=== PATIENT | male | born 1955 | race Caucasian/White ===

== ENCOUNTER 2024-12-20 08:57 | Inpatient (IN) ==
--- NOTE | 2024-11-17 12:42 | PAT Medication Instructions ---
Medication Instructions Date of Service November 17, 2024 Home Medications albuterol 90 mcg/actuation aerosol inhaler 90 mcg inhalation QID PRN apixaban 5 mg tablet (Eliquis) 5 mg PO BID atorvastatin 40 mg tablet (Lipitor) 40 mg PO QPM buprenorphine 15 mcg/hour weekly transdermal patch 1 patch transdermal Q7D empagliflozin 25 mg tablet (Jardiance) 12.5 mg PO QAM escitalopram oxalate 20 mg tablet (Lexapro) 20 mg PO QAM fenofibrate nanocrystallized 145 mg tablet 145 mg PO QAM fluticasone propionate 50 mcg/actuation nasal spray,suspension 1 spray intranasal HS PRN guaifenesin 600 mg tablet, extended release 12 hr (Mucinex) 600 mg PO Q12H PRN lisinopril 20 mg tablet 20 mg PO QAM magnesium oxide 420 mg tablet 420 mg PO QAM melatonin 3 mg tablet 3 mg PO HS metformin 1,000 mg tablet 1,000 mg PO BID methocarbamol 500 mg tablet 1,000 mg PO TID PRN methyl salicylate 10 % topical cream 1 applic topical DAILY PRN pantoprazole 40 mg tablet,delayed release (Protonix) 40 mg PO QAM pregabalin 75 mg capsule (Lyrica) 75 mg PO BID sitagliptin 100 mg tablet 100 mg PO QAM vitamin B12 1 mg-folic acid 0.8 mg tablet 1 tab PO DAILY STOP 3 days before surgery empagliflozin 25 mg tablet (Jardiance) 12.5 mg PO QAM Continue as directed buprenorphine 15 mcg/hour weekly transdermal patch 1 patch transdermal Q7D (do NOT place on surgical area) ASK your prescriber and surgeon apixaban 5 mg tablet (Eliquis) 5 mg PO BID STOP taking 48 hours before surgery fenofibrate nanocrystallized 145 mg tablet 145 mg PO QAM STOP taking 24 hours before surgery methyl salicylate 10 % topical cream 1 applic topical DAILY PRN DO NOT take the morning of surgery guaifenesin 600 mg tablet, extended release 12 hr (Mucinex) 600 mg PO Q12H PRN lisinopril 20 mg tablet 20 mg PO QAM magnesium oxide 420 mg tablet 420 mg PO QAM metformin 1,000 mg tablet 1,000 mg PO BID sitagliptin 100 mg tablet 100 mg PO QAM vitamin B12 1 mg-folic acid 0.8 mg tablet 1 tab PO DAILY Take morning of surgery With a small sip of water, OTHERWISE NOTHING TO EAT OR DRINK AFTER MIDNIGHT: albuterol 90 mcg/actuation aerosol inhaler 90 mcg inhalation QID PRN(use if needed; please bring with you to hospital day of surgery if possible) escitalopram oxalate 20 mg tablet (Lexapro) 20 mg PO QAM methocarbamol 500 mg tablet 1,000 mg PO TID PRN(if needed) pantoprazole 40 mg tablet,delayed release (Protonix) 40 mg PO QAM pregabalin 75 mg capsule (Lyrica) 75 mg PO BID Take evening before surgery albuterol 90 mcg/actuation aerosol inhaler 90 mcg inhalation QID PRN(if needed) atorvastatin 40 mg tablet (Lipitor) 40 mg PO QPM fluticasone propionate 50 mcg/actuation nasal spray,suspension 1 spray intranasal HS PRN(if needed) guaifenesin 600 mg tablet, extended release 12 hr (Mucinex) 600 mg PO Q12H PRN (if needed) melatonin 3 mg tablet 3 mg PO HS metformin 1,000 mg tablet 1,000 mg PO BID methocarbamol 500 mg tablet 1,000 mg PO TID PRN(if needed) pregabalin 75 mg capsule (Lyrica) 75 mg PO BID Other Notes If you have any questions please call us at [phone] or [phone] or [phone] or [phone]
--- NOTE | 2024-11-24 13:10 | Anesthesiology Consultation ---
Date of Service November 24, 2024 Assessment & Plan (1) Encounter for pre-operative examination: Plan - awaiting 11/28/24 PCP Kole [facility] clearance. - check BSG am DOS. - cardiology clearance 11/01/24: "...preoperative cardiac clearance. ..intermediate cardiovascular risk (orthopedic)...mild nonobstructive CAD by cardiac catheterization in 2005...based on history, physical examination and the above information, do not recommend further cardiovascular testing or procedures prior to proceeding with planned back surgery...should be considered a low cardiovascular risk candidate..." - neurology clearance 09/28/24: "...low to moderate risk...cleared for scheduled surgery...off medication as minimum as possible...resume the medication as soon as possible...antiphospholipid antibody syndrome for which he is taking anticoagulation apixaban to prevent stroke, DVT, PE. 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 Medication instructions provided according to the PAT guidelines. History Surgery Operation Date: 12/20/24 11:05 Proposed Procedures p L3-L5 Decompression with Coflex - Heron Redd, Height/Weight Height: 6 ft 2 in Weight: 106 kg Allergies Allergy/AdvReac Type Severity Reaction Status Date / Time No Known Allergies Allergy Verified 11/17/24 08:26 Medications Home Medications Medication Instructions Recorded Confirmed Last Taken albuterol 90 mcg/actuation aerosol 90 mcg inhalation QID PRN 11/17/24 11/17/24 Unknown inhaler Shortness Of Breath Or Wheezing apixaban 5 mg tablet (Eliquis) 5 mg PO BID 11/17/24 11/17/24 Unknown atorvastatin 40 mg tablet (Lipitor) 40 mg PO QPM 11/17/24 11/17/24 Unknown buprenorphine 15 mcg/hour weekly 1 patch transdermal Q7D 11/17/24 11/17/24 Unknown transdermal patch empagliflozin 25 mg tablet 12.5 mg PO QAM 11/17/24 11/17/24 Unknown (Jardiance) escitalopram oxalate 20 mg tablet 20 mg PO QAM 11/17/24 11/17/24 Unknown (Lexapro) fenofibrate nanocrystallized 145 145 mg PO QAM 11/17/24 11/17/24 Unknown mg tablet fluticasone propionate 50 1 spray intranasal HS PRN Nasal 11/17/24 11/17/24 Unknown mcg/actuation nasal Congestion spray,suspension guaifenesin 600 mg tablet, 600 mg PO Q12H PRN Congestion 11/17/24 11/17/24 Unknown extended release 12 hr (Mucinex) lisinopril 20 mg tablet 20 mg PO QAM 11/17/24 11/17/24 Unknown magnesium oxide 420 mg tablet 420 mg PO QAM 11/17/24 11/17/24 Unknown melatonin 3 mg tablet 3 mg PO HS 11/17/24 11/17/24 Unknown metformin 1,000 mg tablet 1,000 mg PO BID 11/17/24 11/17/24 Unknown methocarbamol 500 mg tablet 1,000 mg PO TID PRN Muscle Spams 11/17/24 11/17/24 Unknown methyl salicylate 10 % topical 1 applic topical DAILY PRN Muscle 11/17/24 11/17/24 Unknown cream Pain pantoprazole 40 mg tablet,delayed 40 mg PO QAM 11/17/24 11/17/24 Unknown release (Protonix) pregabalin 75 mg capsule (Lyrica) 75 mg PO BID 11/17/24 11/17/24 Unknown sitagliptin 100 mg tablet 100 mg PO QAM 11/17/24 11/17/24 Unknown vitamin B12 1 mg-folic acid 0.8 mg 1 tab PO DAILY 11/17/24 11/17/24 Unknown tablet atorvastatin 40 mg tablet (Lipitor) 40 mg PO HS 11/24/24 11/24/24 Unknown Additional Notes: Patient was instructed and it was written on provided medication instructions to continue Lipitor after reconciliation of home medication list patient brought to PAT visit. Past Medical History Medical History (Updated 11/24/24 @ 15:37 by Shelley Eagle PA-C) Antiphospholipid antibody syndrome CAD (coronary artery disease) no stents - JORGE LUIS Nguyen Cerebral venous thrombosis of cortical vein (~06/2022) Diabetes mellitus, type 2 NIDDM Essential tremor arms, rarely head involvement GERD (gastroesophageal reflux disease) controlled, stable per pt History of CVA (cerebrovascular accident) (~2022) 2022 - [facility] - "I had three blood clots" - no residuals - Eliquis History of kidney stones multiple History of seizure multiple after CVA-last seizure 2022-follows with [facility] Neurology Hyperlipidemia Hypertension controlled, stable per pt Lumbar back pain Neuropathy Sarcoidosis per cardiology records Thrombosis, superior sagittal sinus (~06/2022) Patient denies h/o heart attack, heart failure, or blood transfusions. Exercise / Class Metabolic Activity III < 4 Walking/Shop/Light housework (ambulates with rolling walker, shortness of breath with usual activities ongoing for over a year-denies change or wors ening; denies chest discomfort) Past Surgical History Surgical History History of appendectomy History of bilateral cataract extraction History of cardiac catheterization JORGE LUIS - Dr Nguyen - no stents History of carpal tunnel release of both wrists History of cervical spinal surgery no hardware - Full ROM History of cystoscopy with stent History of elbow surgery Left History of lithotripsy Past Anesthesia History No Hx of Anesthesia Complications and Other (brother slow to wake) History of PONV History of PONV and Hx of Motion Sickness Social History Smoking Status: Never smoker Do You Dip or Chew Tobacco: No Hx Alcohol Use: Yes alcohol intake frequency: holidays/special occasions only Hx Substance Use: No substance use type: does not use Review of Systems Snoring, denies witnessed apneas. Patient denies chest pain, fever, chills, cough, wheezing, or palpitations. Physical Exam Vital Signs Vitals BP 103/65 P 65 TEMP 98.5 SP02 96% on RA RESP 18 Physical Patient resting comfortably in chair in no acute distress, alert and oriented, responding appropriately throughout visit Full cervical extension range of motion without pain TMD 3.5 finger breadths Mallampati Score 2 Dentition: intact, denies chipped or loose teeth, caps/crowns, implants or bridges Lungs: normal respiratory effort. Good air movement, clear throughout to auscultation, no adventitious breath sounds Cardiac: regular rate and rhythm, no murmurs noted Carotid arteries: negative bruit bilat Lab Results Anesthesia Preop Results Results Anesthesia Widget: WBC 3.96 K/ul (4.8-10.8) L 11/24/24 Hgb 14.5 g/dl (14.0-18.0) 11/24/24 Hct 44.2 % (42.0-52.0) 11/24/24 Plt 184 K/uL (130-400) 11/24/24 Na 141 mmol/L (136-145) 11/24/24 K 4.5 mmol/L (3.5-5.1) 11/24/24 Cl 106 mmol/L (98-107) 11/24/24 CO2 29 mmol/L (21-32) 11/24/24 BUN 19 mg/dl (6-23) 11/24/24 Creat 1.69 mg/dl (0.6-1.4) H 11/24/24 Glucose Level 121 mg/dl (70-99(Fasting)) H 11/24/24 PT 12.3 Seconds (9.0-12.0) H 11/24/24 PTT 29 Seconds (21-31) 11/24/24 INR 1.1 (0.9-1.1) 11/24/24 HA1c 6.9 % (4.5-5.6) H 11/24/24 Urine Color Yellow 11/24/24 Urine Appearance Clear (Clear) 11/24/24 Urine pH 5.5 (4.5-7.5) 11/24/24 Urine Specific [place] 1.034 (1.000-1.030) H 11/24/24 Urine Protein Negative (Negative) 11/24/24 Urine Glucose (UA) 3+ (Negative) H 11/24/24 Urine Ketones Negative (Negative) 11/24/24 Urine Blood Negative (Negative) 11/24/24 Urine Nitrite Negative (Negative) 11/24/24 Urine Bilirubin Negative (Negative) 11/24/24 Urine Urobilinogen Negative (Negative) 11/24/24 Urine Leukocyte Esterase Negative (Negative) 11/24/24 Blood Type O Positive 11/24/24 Antibody Screen NEGATIVE 11/24/24 Testing Electrocardiogram Date: 11/01/24 Sinus rhythm, rate 64 bpm Left axis Chest X-Ray Date: 11/24/24 No acute findings. Echocardiogram Date: 10/18/24 LVEF 60-65% No LV regional wall motion abnormalities No significant valvular pathology Stress Test Date: 06/23/19 Nondiagnostic as the patient underwent Lexiscan stress No electrocardiographic criteria for myocardial ischemia Normal myocardial perfusion imaging Absent myocardial ischemia or infarction EF 62% Normal LV wall motion
[2024-12-20] MEDS: GABAPENTIN 300 MG CAP PO SCH (09:39)
[2024-12-20] MEDS: ACETAMINOPHEN 500 MG TAB PO SCH (09:39)
[2024-12-20] MEDS: CeleBREX 200 MG CAP PO SCH (09:39)
[2024-12-20] MEDS: LR 60ML/HR IV SCH (09:39)
[2024-12-20] MEDS: LR 15ML/HR IV SCH (09:39)
[2024-12-20] MEDS ORDERED: MIDAZOLAM HCL 1 MG/ML 2ML VIAL ONE (10:07)
[2024-12-20] MEDS ORDERED: DEXAMETHASONE SOD INJ 4 MG/ML VIAL ONE (10:10)
[2024-12-20] MEDS ORDERED: fentaNYL citrate PF 100 MCG/2 ML VIAL ONE (10:10)
[2024-12-20] MEDS ORDERED: PROMETHAZINE HCL 6.25 MG in SODIUM CHLORIDE 0.9% 50 ML IV PRN (10:10)
[2024-12-20] MEDS ORDERED: ATROPINE SULFATE 0.1 MG/ML 10ML SYR IV PRN (10:10)
[2024-12-20] MEDS ORDERED: ePHEDrine sulfate 50 MG/ML AMP IV PRN (10:10)
[2024-12-20] MEDS ORDERED: PROPOFOL IV EMULSION 10 MG/ML 20 ML VIAL IV ONE (10:10)
[2024-12-20] MEDS ORDERED: LIDOCAINE 2% 2 ML VIAL/AMP(20MG/ML) INFIL ONE (10:10)
[2024-12-20] MEDS ORDERED: ROCURONIUM BROMIDE 10 MG/ML 5 ML VIAL IV ONE ×2 (10:10→11:12)
[2024-12-20] MEDS ORDERED: ONDANSETRON INJ 2 MG/ML 2 ML VIAL ONE (10:10)
--- NOTE | 2024-12-20 10:31 | History & Physical Bridge Note ---
Date of Service December 20, 2024 History & Physical Bridge Note I have examined the patient, reviewed the History & Physical and in the interval since the performance of the History & Physical I have noted the following changes of clinical significance: no changes noted
--- NOTE | 2024-12-20 10:31 | History & Physical Report ---
Date of Service December 20, 2024 Assessment & Plan (1) Neurogenic claudication due to lumbar spinal stenosis: Plan: L3-L5 decompression with Coflex History of Present Illness Chief Complaint: Back and bilateral leg pain Primary Care Provider: [facility] This is a 69-year-old male who presents with chronic persistent back and leg pain after failing course of nonoperative care is here for surgical invention. Allergies Allergy/AdvReac Type Severity Reaction Status Date / Time No Known Allergies Allergy Verified 12/20/24 09:19 Home Medications Medication Instructions Recorded Confirmed Type albuterol 90 mcg/actuation aerosol 90 mcg inhalation QID PRN 11/17/24 12/20/24 History inhaler Shortness Of Breath Or Wheezing apixaban 5 mg tablet (Eliquis) 5 mg PO BID 11/17/24 12/20/24 History atorvastatin 40 mg tablet (Lipitor) 40 mg PO QPM 11/17/24 12/20/24 History buprenorphine 15 mcg/hour weekly 1 patch transdermal Q7D 11/17/24 12/20/24 History transdermal patch (Butrans) empagliflozin 25 mg tablet 12.5 mg PO QAM 11/17/24 12/20/24 History (Jardiance) escitalopram oxalate 20 mg tablet 20 mg PO QAM 11/17/24 12/20/24 History (Lexapro) fenofibrate nanocrystallized 145 145 mg PO QAM 11/17/24 12/20/24 History mg tablet (Tricor) fluticasone propionate 50 1 spray intranasal HS PRN Nasal 11/17/24 12/20/24 His tory mcg/actuation nasal Congestion spray,suspension guaifenesin 600 mg tablet, 600 mg PO Q12H PRN Congestion 11/17/24 12/20/24 History extended release 12 hr (Mucinex) lisinopril 20 mg tablet 20 mg PO QAM 11/17/24 12/20/24 History magnesium oxide 420 mg tablet 420 mg PO QAM 11/17/24 12/20/24 History melatonin 3 mg tablet 3 mg PO HS 11/17/24 12/20/24 History metformin 1,000 mg tablet 1,000 mg PO BID 11/17/24 12/20/24 History methocarbamol 500 mg tablet 1,000 mg PO TID PRN Muscle Spams 11/17/24 12/20/24 History methyl salicylate 10 % topical 1 applic topical DAILY PRN Muscle 11/17/24 12/20/24 History cream (Methylten) Pain pantoprazole 40 mg tablet,delayed 40 mg PO QAM 11/17/24 12/20/24 History release (Protonix) pregabalin 75 mg capsule (Lyrica) 75 mg PO BID 11/17/24 12/20/24 History sitagliptin 100 mg tablet (Zituvio) 100 mg PO QAM 11/17/24 12/20/24 History vitamin B12 1 mg-folic acid 0.8 mg 1 tab PO DAILY 11/17/24 12/20/24 History tablet Past Med/Surg History Problem List (Updated 12/20/24 @ 10:31 by Heron Redd DO) Neurogenic claudication due to lumbar spinal stenosis Encounter for pre-operative examination Medical History (Updated 12/20/24 @ 10:31 by Heron Redd DO) 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, superior sagittal sinus (~06/2022) Antiphospholipid antibody syndrome Sarcoidosis per cardiology records Essential tremor arms, rarely head involvement Neuropathy Lumbar back pain CAD (coronary artery disease) no stents - JORGE LUIS Nguyen Hyperlipidemia History of kidney stones multiple GERD (gastroesophageal reflux disease) controlled, stable per pt History of seizure multiple after CVA-last seizure 2022-follows with [facility] Neurology Hypertension controlled, stable per pt Diabetes mellitus, type 2 NIDDM History of CVA (cerebrovascular accident) (~2022) 2022 - [place] - [facility] - "I had three blood clots" - no residuals - Eliquis Surgical History History of cervical spinal surgery no hardware - Full ROM History of carpal tunnel release of both wrists History of elbow surgery Left History of cystoscopy with stent History of lithotripsy History of appendectomy History of bilateral cataract extraction History of cardiac catheterization JORGE LUIS Nguyen - no stents Social History Smoking Status: Never smoker Second Hand Exposure: No; Do You Dip or Chew Tobacco: No; Tobacco Cessation Education Requested by Patient: No Hx Alcohol Use: Yes Hx Substance Use: No Preferred Language: Jordanian Communication Ability: Effective Stack Matcher Required: No Beliefs That Will Affect Care: None Current Living Situation: Significant Other Other Information That Helps Us Care for You: No Feels Safe at Home: Yes Safety Concerns: Feels Safe At This Time Assistive Devices: Glasses and Walker Physical Exam Physical Exam: Patient is alert and oriented Heart regular rhythm lungs clear Results & Data Results & Data Vital Signs (Past 12 Hours) Vital Signs Temp Pulse Resp BP Pulse Ox O2 Del Method 12/20/24 09:25 36.7 C 68 18 138/84 95 Room Air
[2024-12-20] MEDS: ceFAZolin 2000MG 2,000 MG/15 ML SYR IV SCH ×2 (11:10→18:11)
[2024-12-20] MEDS: BUPIVACAINE/EPINEPHRINE 0.25% 1:200,000 30 ML VIAL ONE (11:20)
[2024-12-20] MEDS: ceFAZolin 330 MG/ML 1 GM VIAL ONE (11:59)
[2024-12-20] MEDS: FLOSEAL HEMOSTATIC MATRIX 10ML TOP ONE (11:59)
[2024-12-20] MEDS ORDERED: SUGAMMADEX SODIUM 200 MG/2 ML VIAL IV ONE (12:02)
[2024-12-20] MEDS ORDERED: ePHEDrine sulfate 50 MG/5 ML SYR ONE (12:02)
--- NOTE | 2024-12-20 12:14 | Operative Report ---
Post Operative Report Pre & Post Diagnosis Operation Date: 12/20/24 10:35 Pre-Op Diagnosis: Spinal Stenosis Lumbar Region with Neurogenic Claudication Post-Op Diagnosis: Spinal Stenosis Lumbar Region with Neurogenic Claudication I identified the patient and participated in the time-out.: Yes Procedure Operation Date: 12/20/24 10:35 Actual Procedures #1 lumbar decompression with bilateral medial facetectomies L3-L4 L4-5 and #2 placement of Coflex interlaminar spacers 16mm at L3-L4 and 14 mm at L4-L5. #3 placement of versa wrap of the exposed dura. Surgeon Heron Redd, Scalloper Rosenda Frey Estimated Blood Loss 250 Findings Consistent with Post-Op Diagnosis Specimens None Indications This is a 69-year-old male who presents publish diagnosis after failing course of nonoperative care is here for surgical invention. Description of Procedure Patient was met with identified informed consent obtained. Patient was then taken to the operative suite underwent intubation placed in a prone position on the Harry table top the Robinson frame. All bony prominences well-padded eyes inspected to ensure no external pressure placed upon them. This point the lumbar spine was prepped and draped normal sterile fashion. Sharp dissection with the assistance of Bovie cautery performed down to and exposing the lamina and interlaminar spaces at L3-L4 L4-5. Began at L4-5 reporting a performed a midline decompression with bilateral medial facetectomies addressing severe subarticular stenosis and ligamentum hypertrophy. After decompression versa wrap was placed over the exposed dura and a 14 mm Coflex was tamped into position and crimped into place. I then proceeded L3-L4 and again midline decompression performed including bilateral medial facetectomies to address severe facet and hypertrophy and overgrowth of ligamentum flavum. After decompression first wrap was placed over the exposed dura and a 16mm Coflex was tamped into position and clamped into place. Incision was then copiously irrigated and a 15 round NIK drain inserted. It was then closed with 1 Vicryl the fascia 2-0 Vicryl subcutaneously and 4 Monocryl for for final skin closure. Steri-Strips sterile dressing placed. Patient waken taken to PACU stable condition. Please note Rosenda Frey was present of the entire procedure and on the patient positioning complex portion of the surgery and final skin closure. Im ordering 10 grams of Collagen Powder ([facility] A6010 Primary Dressing) and 10 bordered super absorbent ([facility] A6196 Secondary Dressing) to treat an incision wound that was caused by a spine procedure. The incision is approximately 2 cm(W) x 2 cm(L) down to the spinal column and epidural space 2 cm (D) in size and is a full thickness wound showing no signs of infection. Collagen comes in 1 gram packets so 10 packets were ordered. Given the size of the wound, with moderate exudate I chose to order a 10 day supply. The patient will be provided instructions for proper application of the collagen wound kit. The patient will be asked to apply the collagen powder daily and then cover it with sterile dressings dispensed. Collagen was selected as I expect the collagen to attract monocytes and fibroblasts, act as a sacrificial substrate for MMPs, and ultimately proved a matrix for tissue and vessel growth. The collagen will act as a primary dressing in this scenario. It is medically necessary for proper healing of these wounds to improve bioavailability and contact with each wound surface, this is also to help prevent infection of wounds and promote healing ultimately leading to a better healing outcome and limit the risk of infection. I attest to the content of the Intraoperative Record and any orders documented therein. Any exceptions are noted below.
[2024-12-20] MEDS: HYDROmorphone INJ 2 MG/ML SYR/VIAL IV PRN (12:44)
--- NOTE | 2024-12-20 13:05 | Fluoroscopy Report ---
FL lumbar spine 2-3V CLINICAL HISTORY: L3-L5 DECOMPRESSION AND FUSION COMPARISON STUDY: None FLUOROSCOPY TIME: 11 seconds FLUOROSCOPY IMAGES: 3 EXPOSURE DOSE: 10 mGy FINDINGS: Fluoroscopy was provided for placement of posterior intraspinous devices at the lower lumba r spine. IMPRESSION: Intraoperative fluoroscopy. ACT 112: Negative or not required by law. Electronically signed by: Martin Leal M.D. 12/20/2024 1:04 PM
--- NOTE | 2024-12-20 13:42 | Anesthesiology Progress Note ---
Date of Service December 20, 2024 Anesthesia Post Procedure Vital Signs Vital Signs: Temp Pulse Pulse Resp BP Pulse Ox O2 Del Method 12/20/24 13:30 78 15 127/77 92 Nasal Cannula 12/20/24 13:20 36.6 C 76 16 139/70 93 Room Air 12/20/24 13:10 77 15 121/72 94 Oxymask 12/20/24 13:00 73 18 136/71 96 Oxymask 12/20/24 12:50 70 16 140/74 96 Oxymask 12/20/24 12:40 74 15 138/76 97 Oxymask 12/20/24 12:30 74 15 121/85 97 Oxymask 12/20/24 12:21 36.7 C 81 10 L 129/67 95 Oxymask 12/20/24 09:25 36.7 C 68 18 138/84 95 Room Air O2 Flow Rate 12/20/24 13:30 2 12/20/24 13:20 12/20/24 13:10 5 12/20/24 13:00 5 12/20/24 12:50 5 12/20/24 12:40 5 12/20/24 12:30 10 12/20/24 12:21 10 12/20/24 09:25 Pain Intensity Back: Pain Intensity: 6 Transfer of Care Handoff Completed per policy Notes Mental Status: alert / awake / arousable and participated in evaluation Nausea / Vomiting: adequately controlled Pain: adequately controlled Airway Patency, RR, SpO2: stable & adequate BP & HR: stable & adequate Hydration State: stable & adequate Anesthetic Complications: no major complications apparent and Pt Satisfied with anesthetic care
[2024-12-20] MEDS ORDERED: guaiFENesin 600 MG TABCR PO PRN (13:45)
[2024-12-20] MEDS ORDERED: HYDROmorphone INJ 1 MG/ML SYRINGE IV PRN (13:45)
[2024-12-20] MEDS ORDERED: FAMOTIDINE 20 MG TAB PO PRN (13:45)
[2024-12-20] MEDS ORDERED: LORazepam 0.5 MG TAB PO PRN (13:45)
[2024-12-20] MEDS ORDERED: ONDANSETRON 4 MG OD TAB PO PRN (13:45)
[2024-12-20] MEDS ORDERED: bisacodyL 10 MG SUPP PR PRN (13:45)
[2024-12-20] MEDS ORDERED: DO NOT ADMINISTER FLU VACCINE PRN (13:45)
[2024-12-20] MEDS ORDERED: DO NOT ADMINISTER PNEUMOCOCCAL VACCINE PRN (13:45)
[2024-12-20] MEDS ORDERED: PHARMACY GLYCEMIC MGMT CONSULT PRN (13:45)
[2024-12-20] MEDS ORDERED: MAGNESIUM HYDROXIDE SUSP 30 ML UDC PO PRN (13:45)
[2024-12-20] MEDS ORDERED: BUPRENORPHINE TD SCH (13:45)
[2024-12-20] MEDS ORDERED: ALUMINUM/MAGNESIUM SUSP 30 ML UDC PO PRN (13:45)
[2024-12-20] MEDS ORDERED: diphenhydrAMINE Capsule 25 MG CAP PO PRN (13:45)
[2024-12-20] MEDS ORDERED: ACETAMINOPHEN 1,000 MG/100 ML VIAL IV PRN (13:45)
[2024-12-20] MEDS ORDERED: NALOXONE HCL 0.4 MG/1 ML VIAL/CARP IV PRN (13:45)
[2024-12-20] MEDS ORDERED: FLUTICASONE PROPIONATE NA SPR 16 GM BTL PRN (13:45)
[2024-12-20] MEDS ORDERED: PROMETHAZINE 12.5 MG/50.5 ML BAG IV PRN (13:45)
[2024-12-20] MEDS ORDERED: traMADol HCL 50 MG TABLET PO PRN (13:45)
[2024-12-20] MEDS ORDERED: ONDANSETRON INJ 2 MG/ML 2 ML VIAL IV PRN (13:45)
[2024-12-20] MEDS ORDERED: METOCLOPRAMIDE HCL INJ 5 MG/ML 2 ML VIAL IV PRN (13:45)
[2024-12-20] MEDS ORDERED: HYDROmorphone INJ 0.5 MG/0.5 ML SYR IV PRN (13:45)
[2024-12-20] MEDS ORDERED: hydrOXYzine HCl 25 MG TAB PO PRN (13:45)
[2024-12-20] MEDS ORDERED: LORazepam 2 MG/1 ML VIAL IV PRN (13:45)
[2024-12-20] MEDS ORDERED: SOD PHOSPHATE/SOD BIPHOSPHATE ENEMA 132 ML BTL PR PRN (13:45)
[2024-12-20] MEDS ORDERED: ALBUTEROL HFA 8 GM INHALER INH PRN (13:58)
--- NOTE | 2024-12-20 14:11 | Consultation ---
Date of Consultation December 20, 2024 Assessment & Plan (1) Neurogenic claudication due to lumbar spinal stenosis: * Admit to Med Surg * POD#0 s/p lumbar decompression with interlaminar spacers with Dr. Redd. * EBL: 250 ml; Pre-op Hgb 14.5, Hct 44.2- Monitor NIK drain output ~50 ml output post-op * Monitor H&H with AM labs and as needed * CBC with AM labs * Per ortho for pain control- Acetaminophen for mild pain, Oxycodone moderate pain, Dilaudid for moderate or severe pain * Wound care per Ortho * Holding anticoagulation- Consider resuming Eliquis per home regimen * Encourage incentive spirometry while awake; wean oxygen as tolerated for goal O2 sat >92% * PT/OT when appropriate (2) Hypertension: * BP stable in the immediate post-operative phase at 130's/mid 70's * Hold home lisinopril for now * Consider resuming BP meds tomorrow (3) Diabetes mellitus, type 2: * Noninsulin-dependent diabetes managed with metformin, jardiance, and sitagliptin * AccuCheck ACHS * Sliding scale insulin ordered and will adjust accordingly * Pre-op A1C 6.9 (4) CAD (coronary artery disease): * CAD s/p CVA in 2021 with Eliquis treatment at home * Holding Eliquis for now * Follows [facility] Cardiology Dr. Hernandez (5) Hyperlipidemia: * Continue statin per home regimen Plan DVT Ppx: Code status: PCP: Dispo: Patient seen in collaboration with Dr. Almanza. Please see addendum.I spent a total of 35 minutes coordinating, documenting and providing care for this patient excluding time spent in the performance of separately billed services or time spent by another provider/QHP. Supervising Physician Co-Signing Physician Notes Patient seen and examined at bedside. Doing well post op, tired but comfortable. Patient is POD 0 of lumbar decompression for spinal stenosis. On exam, very comfortable, RRR, titrated off of oxygen but cannula still on. Will need the following: IS, pain control per ortho, NIK drain per ortho, daily Hgb/creatinine/leukocytosis monitoring. I have seen and discussed the case with the collaborating advanced practitioner. I agree with the above H&P. I have reviewed and confirmed the patients medical history, the findings on physical examination, and the patients diagnosis and treatment plan with Nellie GUDINO and agree with the information documented. I spent a total of 20 minutes coordinating, documenting, and providing care for this patient excluding time spent in the performance of separately billed services. All of the aforementioned completed outside of collaborating with the assigned advanced practitioner for a full treatment plan. I have reviewed the advanced practitioner's documentation, and I agree with, and take responsibility for the plan of care History of Present Illness Attending Physician: Heron Redd, DO History of Present Illness Mr. 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 Redd. The patient has tried outpatient conservative management with physical therapy, pain management injections, and pain medicines at home. He has history of cervical fusion surgery many years ago, date unknown, from spinal stenosis. He has multiple chronic health needs including those listed above. 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 His diabetes is controlled with oral agents, most recent A1C is 6.9. Blood pressure is relatively stable and is managed with lisinopril only. Mr. Romero receives primary care via the [facility]. History obtained from the patient and his family who was at the bedside to assist with past medical history, medication reconciling, and history of present illness. Allergies Allergy/AdvReac Type Severity Reaction Status Date / Time No Known Allergies Allergy Verified 12/20/24 09:19 Home Medications Medication Instructions Recorded Confirmed Type albuterol 90 mcg/actuation aerosol 90 mcg inhalation QID PRN 11/17/24 12/20/24 History inhaler Shortness Of Breath Or Wheezing apixaban 5 mg tablet (Eliquis) 5 mg PO BID 11/17/24 12/20/24 History atorvastatin 40 mg tablet (Lipitor) 40 mg PO QPM 11/17/24 12/20/24 History buprenorphine 15 mcg/hour weekly 1 patch transdermal Q7D 11/17/24 12/20/24 History transdermal patch (Butrans) empagliflozin 25 mg tablet 12.5 mg PO QAM 11/17/24 12/20/24 History (Jardiance) escitalopram oxalate 20 mg tablet 20 mg PO QAM 11/17/24 12/20/24 History (Lexapro) fenofibrate nanocrystallized 145 145 mg PO QAM 11/17/24 12/20/24 History mg tablet (Tricor) fluticasone propionate 50 1 spray intranasal HS PRN Nasal 11/17/24 12/20/24 History mcg/actuation nasal Congestion spray,suspension guaifenesin 600 mg tablet, 600 mg PO Q12H PRN Congestion 11/17/24 12/20/24 History extended release 12 hr (Mucinex) lisinopril 20 mg tablet 20 mg PO QAM 11/17/24 12/20/24 History magnesium oxide 420 mg tablet 420 mg PO QAM 11/17/24 12/20/24 History melatonin 3 mg tablet 3 mg PO HS 11/17/24 12/20/24 History metformin 1,000 mg tablet 1,000 mg PO BID 11/17/24 12/20/24 History methocarbamol 500 mg tablet 1,000 mg PO TID PRN Muscle Spams 11/17/24 12/20/24 History methyl salicylate 10 % topical 1 applic topical DAILY PRN Muscle 11/17/24 12/20/24 History cream (Methylten) Pain pantoprazole 40 mg tablet,delayed 40 mg PO QAM 11/17/24 12/20/24 History release (Protonix) pregabalin 75 mg capsule (Lyrica) 75 mg PO BID 11/17/24 12/20/24 History sitagliptin 100 mg tablet (Zituvio) 100 mg PO QAM 11/17/24 12/20/24 History vitamin B12 1 mg-folic acid 0.8 mg 1 tab PO DAILY 11/17/24 12/20/24 History tablet oxycodone 5 mg tablet 5 mg PO Q6H PRN pain #30 tabs 12/20/24 Rx tramadol 50 mg tablet 50 mg PO Q6H PRN pain, moderate 12/20/24 Rx #30 tabs Patient History Medical History 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, superior sagittal sinus (~06/2022) Antiphospholipid antibody syndrome Sarcoidosis per cardiology records Essential tremor arms, rarely head involvement Neuropathy Lumbar back pain CAD (coronary artery disease) no stents - JORGE LUIS Nguyen Hyperlipidemia History of kidney stones multiple GERD (gastroesophageal reflux disease) controlled, stable per pt History of seizure multiple after CVA-last seizure 2022-follows with [facility] Neurology Hypertension controlled, stable per pt Diabetes mellitus, type 2 NIDDM History of CVA (cerebrovascular accident) (~2022) 2022 - [place] [facility] - Critical access hospital Neurology - "I had three blood clots" - no residuals - Eliquis Surgical History History of cervical spinal surgery no hardware - Full ROM History of carpal tunnel release of both wrists History of elbow surgery Left History of cystoscopy with stent History of lithotripsy History of appendectomy History of bilateral cataract extraction History of cardiac catheterization JORGE LUIS Nguyen - no stents Social History Smoking Status: Never smoker Second Hand Exposure: No; Do You Dip or Chew Tobacco: No; Tobacco Cessation Education Requested by Patient: No Hx Alcohol Use: Yes Hx Substance Use: No Preferred Language: Norwegian Communication Ability: Effective Striker Out Required: No Beliefs That Will Affect Care: None Current Living Situation: Significant Other Other Information That Helps Us Care for You: No Feels Safe at Home: Yes Safety Concerns: Feels Safe At This Time Assistive Devices: Glasses and Walker Review of Systems Review of Systems: All systems reviewed & are unremarkable except as noted in HPI & below Physical Exam Physical Exam: VITALS: Reviewed. WEIGHT/BMI reviewed. GEN: Healthy appearing, well-developed, NAD. PSYCH: Good Judgment. AOx3. Normal memory, mood. Flat affect post-operatively and fatigued HEENT -Head: NC/AT; -Eyes: PERRL, EOMI. No discharge or redn ess; -Ears: External ears are normal. Normal TMs. -Nose: Normal nares. -Mouth and throat: MMM. Normal gums, muc carlyn, palate,. Good dentition. NECK: Supple, with no masses. CV: RRR, no m/r/g. No swelling. Peripheral pulses strong. LUNGS: Wearing 2 LPM O2 via NC, CTAB, no w/r/c. ABD: Soft, NT/ND,active bowel sounds x 4, no masses or organomegaly. : N/A SKIN: Warm, well perfused. No skin rashes or abnormal lesions. MSK: Lumbar dressing intact. NIK drain intact with ~50 ml serosangiunous drainage. Moving BLE extremities without difficulty. Sensation intact to BLE and feet. EXT: No clubbing, cyanosis, or edema. NEURO: BLE strength +3/5. Speech clear. No focal deficits. Results & Data Vital Signs (Past 12 Hours) Vital Signs Temp Pulse Pulse Resp BP Pulse Ox O2 Del Method 12/20/24 13:46 36.7 C 67 136/75 95 Nasal Cannula 12/20/24 13:30 78 15 127/77 92 Nasal Cannula 12/20/24 13:20 36.6 C 76 16 139/70 93 Room Air 12/20/24 13:10 77 15 121/72 94 Oxymask 12/20/24 13:00 73 18 136/71 96 Oxymask 12/20/24 12:50 70 16 140/74 96 Oxymask 12/20/24 12:40 74 15 138/76 97 Oxymask 12/20/24 12:30 74 15 121/85 97 Oxymask 12/20/24 12:21 36.7 C 81 10 L 129/67 95 Oxymask 12/20/24 09:25 36.7 C 68 18 138/84 95 Room Air O2 Flow Rate 12/20/24 13:46 2 12/20/24 13:30 2 12/20/24 13:20 12/20/24 13:10 5 12/20/24 13:00 5 12/20/24 12:50 5 12/20/24 12:40 5 12/20/24 12:30 10 12/20/24 12:21 10 12/20/24 09:25
[2024-12-20] MEDS: oxyCODONE HCL IR 5 MG TAB (IMMEDIATE RELEASE) PO PRN (14:13)
--- NOTE | 2024-12-20 14:59 | Pharmacy Report ---
Pharmacy Glycemic Short Note 2 - Date of Service December 20, 2024 - Glycemic Short BSG Results (Last 24 hours): 12/20/24 12/20/24 09:19 13:31 POC Glucose 124 H 135 H OUTPATIENT ANTIDIABETIC REGIMEN: * empagliflozin 12.5mg po daily * metformin 1000mg po BID * sitagliptin 100mg po Q AM HbA1c: 6.9% on 11/24/24 ASSESSMENT: * Nick is a 69 year old male admitted today for lumbar decompression (POD #0). Pharmacy has been consulted for glycemic management post op. * BSG preop was 124mg/dL and postop was 135mg/dL. Dexamethasone 8mg iv x 1 was given preop and no further steroids are ordered. Will not order basal insulin at this time. Will start a weight based bolus insulin regimen with a stress of 2. PLAN FOR INPATIENT GLYCEMIC CONTROL: * Hold outpatient oral diabetes medications * Basal insulin * none * Bolus insulin * NovoLog per scale ACHS or Q6hrs while NPO * Goal Range: Low 110 mg/dL - High 140 mg/dL * Correction Factor: 25 mg/dL/unit * Nutritional / Prandial insulin per carb ratio of 1 unit per 8 grams CHO consumed
[2024-12-20] MEDS: CHECK BUPRENORPHINE PATCH SCH (16:33)
[2024-12-20] MEDS: INSULIN ASPART PER UNIT CHARGE SC SCH (18:11)
[2024-12-20] MEDS: MELATONIN 3 MG TAB PO SCH (21:31)
[2024-12-20] MEDS: ATORVASTATIN 40 MG TAB PO SCH (21:31)
[2024-12-20] MEDS: DOCUSATE SODIUM/SENNA 50/8.6MG TAB PO SCH (21:31)
[2024-12-20] MEDS: PREGABALIN 75 MG CAP PO SCH (21:32)
[2024-12-20 21:33] VITALS: RESP 18
[2024-12-20] MEDS: ACETAMINOPHEN 500 MG TAB PO PRN (21:34)
[2024-12-21] MEDS: POLYETHYLENE (MIRALAX) 17 GM PACK PO SCH (06:06)
[2024-12-21 06:44] LABS: Hematocrit (blood only) 40.1 % (42.0-52.0); Mean Corpuscular Hemoglobin 29.7 pg (25.0-34.0); Mean Corpuscular Hgb Conc 32.4 g/dL (32.0-36.0); Mean Corpuscular Volume 91.8 fL (80.0-100.0); Mean Platelet Volume 12.3 fL (9.4-12.4); Platelet Count 117 K/uL (130-400); Red Blood Count 4.37 M/uL (4.70-6.10); White Blood Count 6.89 K/ul (4.8-10.8)
[2024-12-21 07:03] LABS: BUN Creatinine Ratio 15.9 (10-20); Calcium 8.8 mg/dl (8.6-10.3); Creatinine Clr Calc Pharmacy 59.6 ml/min
[2024-12-21 07:31] VITALS: TEMP 98.8; O2SAT 92
--- NOTE | 2024-12-21 08:37 | Discharge Summary ---
Date of Service December 21, 2024 Admission HPI Per Admitting Provider This is a 69-year-old male who presents with chronic persistent back and leg pain after failing course of nonoperative care is here for surgical invention. Admission Exam (Per Admitting) Constitutional WD/WN, vitals as above Eyes normal visual alvarenga by confrontation ENMT external ear and nose normal, oropharynx normal Neck normal visual inspection Respiratory normal respiratory effort Cardiovascular Extremities: normal capillary refill Gastrointestinal (Abdomen) Inspection/Auscultation: abdomen normal to inspection Musculoskeletal Spine: + pain with thoraco-lumbar ROM Extremities: extremities normal to inspection and strength 5/5 throughout Skin no rashes, warm and dry Neurologic normal touch/pain/proprioception and moves all extremities Psychiatric A+Ox3, euthymic affect Discharge Data Consultations 12/20/24 13:45 Consult Hospitalist Routine Procedures Performed Operation Date: 12/20/24 10:35 Actual Procedures p L3-L5 Decompression with Coflex(Not Applicable) - Heron Redd DO Hospital Course (1) Neurogenic claudication due to lumbar spinal stenosis: Lara is being discharged home on postoperative day 1 status post L3-4, L4-5 decompression with Coflex implant. He has had an uneventful hospital stay. Lab values are stable. NIK drain output is diminishing. He is going to be discharged home on postoperative day 1. All questions have been answered in detail. He is can resume his Eliquis on December 24. Discharge Instructions ACTIVITY RECOMMENDATIONS: SELF CARE INSTRUCTIONS AFTER A LAMINECTOMY 1. No prolonged sitting (less than 30 minutes for the first 3 weeks after surgery). 2. No bending, lifting more than 5 pounds, or twisting (roll like a log when turning in bed). 3. You may shower 3 days after surgery if no drainage from wound. Thoroughly dry wound. Do not soak in the tub. 4. Please walk as much as you can for exercise. Gradually increase the distance that you walk as your endurance increases. 5. You may drive in 7-10 days if you are comfortable and no longer requiring pain medications. 6. You may return to previous diet. SPECIAL CARE INSTRUCTIONS: VERY IMPORTANT TO READ AND REVIEW A. Your surgical incision has been closed with a cosmetic suture under the skin that will dissolve in about 6 weeks. In 14 days, you can use a pair of clean scissors and cut the suture that is left outside of the skin at the ends of your incision. B. Complications are uncommon, but please contact us if you have any signs or symptoms of: 1. wound infection (fever higher than 102.5 degrees F, redness, separation of wound, drainage, or increasing pain from the incision) 2. blood clots in legs (pain, swelling, redness and warmth in legs) 3. urinary tract infection (fever higher than 102.5 degrees, burning upon urination or increased frequency of urination) 4. nerve problems (inability to walk on your toes or heels, numbness, loss of bowel or bladder control) 5. any other symptoms that concern you. C. Please call the office at if you have any concerns or questions about your operation or recovery. MANAGING PAIN AFTER SPINAL SURGERY 1. Narcotic medication is intended for short-term use and will be provided for surgical pain. Surgical pain usually lasts for a period of 4-6 weeks. Narcotic medication includes Percocet, Vicodin, Darvocet, Tylenol #3 or Lortab. 2. Longer-term pain is more appropriately treated with non-narcotic medication such as Tylenol ES. 3. Muscle spasm is not appropriately treated with narcotics. Muscle relaxers such as Soma, Flexeril or Skelaxin can be used along with Tylenol ES. 4. Remember that we all live with some "aches and pains". This is not unusual or uncommon after an injury or as we get older. 5. We will provide appropriate medication within the normal guidelines of their prescribed use. We will also be very cautious and aware of potential abuse and extended duration of patients' medication needs. 6. Please allow 2-3 days to process refills. Prescriptions will not be mailed but must be picked up at the office. FOLLOW UP VISIT: Keep your scheduled follow-up appointment. Any questions, please call the office at .
[2024-12-21] MEDS ORDERED: NON-FORMULARY MEDICATION (Vitamin B12-Folic Acid 1-0.8 mg Tablet) PO SCH (09:00)
[2024-12-21] MEDS ORDERED: lisinopril 20 MG TAB PO SCH (09:00)
[2024-12-21] MEDS ORDERED: SITAGLIPTIN 100 MG PO SCH (09:00)
[2024-12-21] MEDS: MAGNESIUM OXIDE 400 MG TAB PO SCH (09:36)
[2024-12-21] MEDS: PANTOprazole 40 MG TAB PO SCH (09:36)
[2024-12-21] MEDS: ESCITALOPRAM OXALATE 20 MG TAB PO SCH (09:36)
[2024-12-21] MEDS: FENOFIBRATE NANOCRYSTALLIZED 145 MG TABLET PO SCH (09:36)
[2024-12-21 09:51] VITALS: BP 122/56; PULSE 71
--- NOTE | 2024-12-21 10:50 | Hospitalist Progress Note ---
Date of Service December 21, 2024 Assessment & Plan (1) Neurogenic claudication due to lumbar spinal stenosis: (2) Acute blood loss as cause of postoperative anemia: (3) Hypertension: (4) Diabetes mellitus, type 2: (5) CAD (coronary artery disease): (6) Hyperlipidemia: Plan This is a 69 yr old M who has a significant PMH of CAD, HTN, HLD, T2DM, antiphospholipid antibody syndrome, hx of cva s/p thrombosis of superior sagittal sinus in 2022, essential tremor and sarcoidosis who underwent lumbar procedure by Dr. Redd on 12/20/24. He tolerated the procedure well. 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 Redd and resume on 12/24 Pt medically stable for discharge. Pt was seen and examined in collaboration with Dr. Hua, please see addendum I spent a total of 35 minutes coordinating, documenting and providing care for this patient excluding time spent in the performance of separately billed services or time spent by another provider/QHP. Admission and Anticipated Discharge Date Admission Date: December 20, 2024 Supervising Physician Co-Signing Physician Notes Patient seen and examined at bedside. Doing well post op day 1 of lumbar decompression for spinal stenosis. On exam, very comfortable, RRR, low back dressing c/d/i. I have seen and examined the patient and have discussed the case with the provider above. I agree with the assessment and plan as stated. Time spent: 12 min. Subjective Pt seen and examined in room 302. Follow up laminectomy. He is complaining of some mild incisional back pain. Denies f/c/s, chest pain, sob, n/v/d. He is passing flatus. He is tolerating diet. Plan is to discharge to home today. Review of Systems Review of Systems: All systems reviewed & are unremarkable except as noted in HPI & below Physical Exam Physical Exam: Gen: WD/WN, NAD, A&O x3, sitting up in bedside chair HEENT: Normocephalic, atraumatic, conjunctivae moist, sclerae anicteric, mucous membranes moist. Lung: Clear to Auscultation bilaterally, no wheezes/rales/rhonchi Heart: Regular rate, regular rhythm, no murmurs, rubs, or gallops Abdomen: Soft, NT, ND +BS x 4 Extremities: No edema, + b/l upper ext essential tremor, gerri drain with serosanguineous outpt Skin: Warm, no rash, negative turgor. Results & Data Results & Data Vital Signs (Past 12 Hours) Vital Signs Temp Pulse Pulse Resp BP BP Pulse Ox 12/21/24 09:50 37.1 C 67 71 18 111/57 L 122/56 L 92 12/21/24 07:30 37.1 C 67 18 111/57 L 92 12/21/24 02:54 36.6 C 71 18 122/56 L 95 12/20/24 23:26 36.4 C L 70 18 120/58 L 95 O2 Del Method 12/21/24 09:50 12/21/24 07:30 Room Air 12/21/24 02:54 Room Air 12/20/24 23:26 Room Air Laboratory Results I have independently reviewed and interpreted patient's cbc, bmp Medications Administered Current Inpatient Medications Acetaminophen (Acetaminophen 500 Mg Tab) 1,000 mg PO Q8H PRN PRN Reason: MILD Pain Scale 1,2,3 & Pre PT Stop: 01/19/25 13:44 Last Admin: 12/20/24 21:34 Dose: 1,000 mg Albuterol (Albuterol Hfa 8 Gm Inhaler) 1 puffs INH QID PRN PRN Reason: Shortness Of Breath Or Wheezing Stop: 01/19/25 13:57 Atorvastatin Calcium (Atorvastatin 40 Mg Tab) 40 mg PO QPM GUERLINE Stop: 01/19/25 20:59 Last Admin: 12/20/24 21:31 Dose: 40 mg Bisacodyl (Bisacodyl 10 Mg Supp) 10 mg MA DAILY PRN PRN Reason: Constipation Stop: 01/19/25 13:44 Buprenorphine HCl (Buprenorphine 10 Mcg/Hr Tdsy) 1 patch TD Q7D@0900 [facility] Stop: 01/24/25 08:59 Buprenorphine HCl (Buprenorphine 5 Mcg/Hr Tdsy) 1 patch TD Q7D@0900 [facility] Stop: 01/24/25 08:59 Escitalopram Oxalate (Escitalopram Oxalate 20 Mg Tab) 20 mg PO QAM [facility] Stop: 01/20/25 08:59 Last Admin: 12/21/24 09:36 Dose: 20 mg Famotidine (Famotidine 20 Mg Tab) 20 mg PO Q12H PRN PRN Reason: Dyspepsia Stop: 01/19/25 13:44 Fenofibrate (Fenofibrate Nanocrystallized 145 Mg Tablet) 145 mg PO [facility] Stop: 01/20/25 08:59 Last Admin: 12/21/24 09:36 Dose: 145 mg Fluticasone Propionate (Fluticasone Propionate Na Spr 16 Gm Btl) 1 sprays NA HS PRN PRN Reason: Nasal Congestion Stop: 01/19/25 13:44 Guaifenesin (Guaifenesin 600 Mg Tabcr) 600 mg PO Q12H PRN PRN Reason: Congestion Stop: 01/19/25 13:44 Hydromorphone HCl (Hydromorphone Inj 0.5 Mg/0.5 Ml Syr) 0.5 mg IV Q3H PRN PRN Reason: MODERATE Pain (Scale 4,5,6) & Pre PT Stop: 01/03/25 13:44 Hydromorphone HCl (Hydromorphone Inj 1 Mg/Ml Syringe) 1 mg IV Q3H PRN PRN Reason: SEVERE Pain (Scale 7,8,9,10) Stop: 01/03/25 13:44 Hydroxyzine HCl (Hydroxyzine Hcl 25 Mg Tab) 25 mg PO Q8H PRN PRN Reason: Anxiety Stop: 01/19/25 13:44 Acetaminophen (Ofirmev) 1,000 mg in 100 mls @ 400 mls/hr IV Q8H PRN PRN Reason: Pain Rating 1-3 & Pre PT Stop: 12/21/24 13:45 Influenza Virus Vaccine Quadrival (Do Not Administer Flu Vaccine) 1 each N/A PRN PRN PRN Reason: Notification Stop: 01/19/25 13:44 Insulin Aspart (Insulin Aspart Per Unit Charge) 0 units SC ACHS [facility] Stop: 01/19/25 16:29 Last Admin: 12/21/24 09:38 Dose: 8 units Lisinopril (Lisinopril 20 Mg Tab) 20 mg PO QAM [facility] Stop: 01/20/25 08:59 Magnesium Oxide (Magnesium Oxide 400 Mg Tab) 400 mg PO QAM [facility] Stop: 01/20/25 08:59 Last Admin: 12/21/24 09:36 Dose: 400 mg Melatonin (Melatonin 3 Mg Tab) 3 mg PO HS [facility] Stop: 01/19/25 20:59 Last Admin: 12/20/24 21:31 Dose: 3 mg Miscellaneous (Methyl Salicylate [Methylten] 10 % Cream--Order Awaiting Action) 1 each N/A QS [facility] Stop: 01/19/25 15:59 Last Admin: 12/21/24 08:08 Dose: Not Given Miscellaneous (Check Buprenorphine Patch) 1 each N/A QS [facility] Stop: 01/19/25 15:59 Last Admin: 12/21/24 09:36 Dose: 1 each Miscellaneous Information (Pharmacy Glycemic Mgmt Consult) 1 each N/A UD PRN PRN Reason: Consult Stop: 01/19/25 13:44 Naloxone HCl (Naloxone Hcl 0.4 Mg/1 Ml Vial/Carp) 0.1 mg IV Q5M PRN PRN Reason: Oversedation/Resp depression Stop: 01/19/25 13:44 Ondansetron HCl (Ondansetron Inj 2 Mg/Ml 2 Ml Vial) 4 mg IV Q6H PRN PRN Reason: Nausea &/or Vomiting Stop: 01/19/25 13:44 Oxycodone HCl (Oxycodone Hcl Ir 5 Mg Tab (Immediate Release)) 5 - 10 mg PO Q4H PRN PRN Reason: Pain & Pre PT Stop: 01/03/25 13:44 Last Admin: 12/20/24 22:39 Dose: 10 mg Pantoprazole Sodium (Pantoprazole 40 Mg Tab) 40 mg PO QAM [facility] Stop: 01/20/25 08:59 Last Admin: 12/21/24 09:36 Dose: 40 mg Pneumococcal Polyvalent Vaccine (Do Not Administer Pneumococcal Vaccine) 1 each N/A PRN PRN PRN Reason: Notification Stop: 01/19/25 13:44 Polyethylene Glycol (Polyethylene (Miralax) 17 Gm Pack) 17 gm PO Q6 GUERLINE Stop: 01/20/25 05:59 Last Admin: 12/21/24 06:06 Dose: 17 gm Pregabalin (Pregabalin 75 Mg Cap) 75 mg PO BID GUERLINE Stop: 01/19/25 20:59 Last Admin: 12/21/24 09:36 Dose: 75 mg Senna/Docusate Sodium (Docusate Sodium/Senna 50/8.6mg Tab) 2 tab PO HS GUERLINE Stop: 01/19/25 20:59 Last Admin: 12/20/24 21:31 Dose: 2 tab
[2024-12-25] MEDS ORDERED: BUPRENORPHINE 5 MCG/HR TDSY TD SCH (09:00)
[2024-12-25] MEDS ORDERED: BUPRENORPHINE 10 MCG/HR TDSY TD SCH (09:00)
== END 2024-12-21 11:41 | disposition home or self-care (01) | DRG 518 ==
LOC: ASU 08:57 → 3E 12:18